=== PATIENT | male | born 1975 | race Caucasian/White ===

== ENCOUNTER 2024-03-13 12:09 | Inpatient (IN) | payer OTHER ==
[~2024-03-13] VITALS: Ht 177.8 cm; Wt 68.0 kg
--- NOTE | 2024-03-13 12:32 | ED.PDOC ---
Altered Mental Status HPI Comments 48 y.o male presents to the ED via EMS for an evaluation of altered mental status. EMS reports patient was picked up from a rehabilitation facility in [place], [place], staff noted a change of patient's mental status, last seen normal was around 1999 last night. Patient is in the facility for alcohol and cocaine detox with last alcohol drink being 11 days ago and unknown when cocaine was last used. Patient is lethargic with GCS of 10 per EMS, is able to verbally answer some questions in a mumbling format. Patient has a history of CHF. Time Seen by MD: 12:04 Reviewed Notes: Nurses Notes, Wood Shop Teacher Notes, Medications, Allergies Allergies: Coded Allergies: NO KNOWN ALLERGIES (Unverified , 03/13/24) Information Source: Emergency Med Personnel Mode of Arrival: EMS Severity: Moderate Timing: Hours Duration: Since onset Quality: Decreased Alertness, Change in Behavior Associated Signs and Symptoms: Other Past Medical History PAST MEDICAL HISTORY: CHF Past Medical History (Other): sepsis x 2 years Family History Family History: Reviewed,noncontributory to illness Social History Smoker: Non-Smoker Alcohol: Occasionally Drugs: Cocaine Lives In: Home Unable to Obtain due to: Altered Mental Status Physical Exam General Appearance: No Apparent Distress, Normal HEENT: Normal ENT Inspection, Pharynx Normal, TMs Normal Neck: Full Range of Motion, Non-Tender, Normal, Normal Inspection Respiratory: Chest Non-Tender, Lungs Clear, No Accessory Muscle Use, No Respiratory Distress, Normal Breath Sounds Cardiovascular: No Edema, No JVD, No Murmur, No Gallop, Normal Peripheral Pulses, Regular Rate/Rhythm Breast Exam: Deferred Gastrointestinal: No Organomegaly, Non Tender, No Pulsatile Mass, Normal Bowel Sounds, Soft Genitalia: Deferred Pelvic: Deferred Rectal: Deferred Extremities: No calf tenderness, Normal capillary refill, Normal inspection, Normal range of motion, Non-tender, No pedal edema Musculoskeletal : Apperance: Normal Neurologic: Other (4mm bilateral pupils, no facial asymmetry, responds verbally with soft and mumbling voice. no posturing) Cerebellar Function: Normal Reflexes: Normal Skin: Dry, Normal Color, Warm Lymphatic: No Adenopathy Was a procedure done? Was a procedure done?: No Differential Diagnosis (ALOC) Differential Diagnosis: Dehydration, Hypoglycemia, DKA, Encephalopathy, Meningitis, Sepsis, Hypoxemia, Seizure, Closed Head Injury, CVA, Mass Lesion, SAH, Drug Overdose, ETOH Intoxication, Other (drug overdose) X-Ray, Labs, Meds, VS Vital Signs Date Time Temp Pulse Resp B/P (MAP) Pulse Ox O2 Delivery O2 Flow Rate FiO2 03/13/24 13:04 88 6 100 Nasal Cannula* 3 32 03/13/24 13:04 97.8 88 6 122/82 (95) 100 97.8 03/13/24 12:15 96.9 100 12 106/75 (85) 94 03/13/24 12:10 95 Lab Test 03/13/24 15:10 03/13/24 13:00 Range/Units Urine Opiates Screen Neg NEGATIVE Urine Fentanyl Screen Pos NEGATIVE Urine Barbiturates Screen Pos NEGATIVE Urine Phencyclidine Screen Neg NEGATIVE Urine Amphetamines Screen Neg NEGATIVE Urine Benzodiazepines Screen Neg NEGATIVE Urine Cocaine Screen Pos NEGATIVE Urine Cannabinoids Screen Pos NEGATIVE White Blood Count 5.3 4.4-10.8 10^3/uL Red Blood Count 4.80 4.5-5.90 10^6/uL Hemoglobin 14.3 13.5-17.5 g/dL Hematocrit 42.3 41.0-53.0 % Mean Corpuscular Volume 88.1 80.0-100.0 fL Mean Corpuscular Hemoglobin 29.8 28.0-32.0 pg Mean Corpuscular Hemoglobin Concent 33.9 32.0-36.0 g/dL Red Cell Distribution Width 15.4 H 11.8-14.3 % Platelet Count 158 140-450 10^3/uL Mean Platelet Volume 8.6 6.9-10.8 fL Neutrophils (%) (Auto) 72.0 37.0-80.0 % Lymphocytes (%) (Auto) 20.9 10.0-50.0 % Monocytes (%) (Auto) 5.1 0.0-12.0 % Eosinophils (%) (Auto) 1.6 0.0-7.0 % Basophils (%) (Auto) 0.4 0.0-2.0 % Neutrophils # (Auto) 3.8 1.6-8.6 10 ^3/uL Lymphocytes # (Auto) 1.1 0.4-5.4 10 ^3/uL Monocytes # (Auto) 0.3 0-1.3 10 ^3/uL Eosinophils # (Auto) 0.1 0-0.8 10 ^3/uL Basophils # (Auto) 0 0-0.2 10 ^3/uL Nucleated Red Blood Cells 0.0 % Sodium Level 145 136-145 mmol/L Potassium Level 4.0 3.5-5.1 mmol/L Chloride Level 108 H 98-107 mmol/L Carbon Dioxide Level 30 20-31 mmol/L Anion Gap 7 5-15 Blood Urea Nitrogen 14 9-23 mg/dL Creatinine 1.33 H 0.700-1.30 mg/dL Glomerular Filtration Rate Calc 66 >90 mL/min BUN/Creatinine Ratio 10.5 10.0-20.0 Serum Glucose 101 74-106 mg/dL Calcium Level 10.1 8.7-10.4 mg/dL Plasma/Serum Blood Alcohol < 3.0 <10 mg/dL Current Medications Medications (Trade) Dose Ordered Sig/Miguel Route Start Time Stop Time Status Last Admin Naloxone HCl (Narcan) 0.4 mg ONCE ONCE IV 03/13/24 12:45 03/13/24 12:46 DC 03/13/24 13:03 Time of 1ST Reevaluation: 12:12 Reevaluation 1ST: Unchanged (nsr on cardiac rhythm) Time of 2ND Reevaluation: 14:21 Reevaluation 2ND: Unchanged (rhythm monitor- nsr. pt is sleeping, but can be waken to gaze and whisper softly) Time of 3RD Reevaluation: 16:25 Reevaluation 3RD: Unchanged (cardiac rhythm- nsr- no changes in mentaion) Patient Education/Counseling: Other (patient is altered ) Family Education/Counseling: Diagnosis, Treatment, Prognosis, Need For Follow Up, No Family Present Additional Information Ordered Test- Drug screen, CBC, BMP, EKG , head ct, drug screen Reviewed Results- LAB Independent Hx- Paramedics and Interpreted Results- CT Head- reviewed and agree with radiology- IMPRESSION: 1. No acute intracranial hemorrhage. 2. No CT findings of territorial ischemia. Discuss Tx/Results- , medical personnel, technical assistance consultant reports both are in the Detox program at the [facility], are on Suboxone. and patient both used cocaine and alcohol 7 days ago. reports patient AMS has been going on for the past 2 days. pt tested positive for pat, and fent. he remains lethargic, but no airway compromise. he can be waken, to start and whisper softly. he is not stable to be discharged, but does not need airway interventions. however, he will need admission for further monitoring Departure 1 Departure Time of Disposition: 16:28 Impression: Primary Impression: Drug overdose Qualified Codes: T50.904A - Poisoning by unspecified drugs, medicaments and biological substances, undetermined, initial encounter Disposition: ADMITTED INPATIENT Admit to: Tele Condition: Serious Critical Care Note Critical Care Time?: Yes (1 hr-critical care time only) Critical care comment: due to concerns for sudden deterioration of pt's condition, the patient's care required my most attentive level and highest readiness to intervene. i assessed him, ordered the appropriate orders, reviewed the results, and reassessed the patient's response, formulated a care plan, communicated with medical personnel and consultants. total time include at least 50% face-face interaction and does not include any procedures Stability Stability form required: No I personally scribed for VINNY CAMPBELL MD ([facility]) on 03/13/24 at 12:32. Electronically submitted by Alma Brush ([facility]). I personally scribed for VINNY CAMPBELL MD ([facility]) on 03/13/24 at 12:49. Electronically submitted by Alma Brush ([employer]). I personally scribed for VINNY CAMPBELL MD ([facility]) on 03/13/24 at 13:15. Electronically submitted by Alma Brush ([employer]). I personally scribed for VINNY CAMPBELL MD ([email or web address]) on 03/13/24 at 16:13. Electronically submitted by Alma Brush ([facility]). VINNY CAMPBELL MD Mar 13, 2024 12:32
[2024-03-13] MEDS: NALOXONE HCL 0.4 MG/ML VIAL IV ONE (13:03)
[2024-03-13 13:04] VITALS: PULSE 88; RESP 6; O2SAT 100
[2024-03-13 13:14] LABS: Basophils # (auto) 0 10 ^3/uL (0-0.2); Basophils % (auto) 0.4 % (0.0-2.0); Eosinophils # (auto) 0.1 10 ^3/uL (0-0.8); Eosinophils % (auto) 1.6 % (0.0-7.0); Hematocrit 42.3 % (41.0-53.0); Hemoglobin 14.3 g/dL (13.5-17.5); Lymphocytes # (auto) 1.1 10 ^3/uL (0.4-5.4); Lymphocytes % (auto) 20.9 % (10.0-50.0); Mean Corpuscular Hemoglobin 29.8 pg (28.0-32.0); Mean Corpuscular Hgb Conc. 33.9 g/dL (32.0-36.0); Mean Corpuscular Volume 88.1 fL (80.0-100.0); Monocytes # (auto) 0.3 10 ^3/uL (0-1.3); Monocytes % (auto) 5.1 % (0.0-12.0); Neutrophils # (auto) 3.8 10 ^3/uL (1.6-8.6); Platelet Count (auto) 158 10^3/uL (140-450); Red Cell Distribution Width 15.4 % (11.8-14.3); White Blood Cell 5.3 10^3/uL (4.4-10.8)
[2024-03-13 13:27] LABS: Anion Gap 7 (5-15); Calcium 10.1 mg/dL (8.7-10.4); Carbon Dioxide 30 mmol/L (20-31)
[2024-03-13 13:29] LABS: Chloride 108 mmol/L (98-107); Sodium 145 mmol/L (136-145)
[2024-03-13 13:32] LABS: BUN/Creatinine Ratio 10.5 (10.0-20.0); Blood Urea Nitrogen 14 mg/dL (9-23); Glucose 101 mg/dL (74-106)
--- NOTE | 2024-03-13 14:51 | DVH ---
EXAM: CT HEAD WITHOUT CONTRAST INDICATION: altered TECHNIQUE: CT of the head without intravenous contrast. Radiation Dose Information: CT Dose: CTDI volume is 57.04 mGy. Dose-length product is 1010.0 mGy*cm The dose indicators for CT are the volume Computed Tomography (CT) Dose Index (CTDIvol) and the Dose Length Product (DLP), and are measured in units of mGy and mGy-cm, respectively. These indicators are not patient dose, but values generated from the CT scanner acquisition factors. The report includes radiation exposure data for exposures received during this examination. COMPARISON: None FINDINGS: There is no evidence of acute intracranial hemorrhage, extra-axial collection, mass effect, midline s hift, herniation or hydrocephalus. The ventricles, sulci and cisterns are age appropriate. The little-white differentiation is intact. Patchy periventricular and subcortical white matter hypoattenuation is nonspecific but may be related to small vessel ischemic disease. The visualized paranasal sinuses and mastoid air cells are clear. The surrounding soft tissues and osseous structures are unremarkable. IMPRESSION: 1. No acute intracranial hemorrhage. 2. No CT findings of territorial ischemia.
[2024-03-13 15:36] LABS: Barbiturate Scree,Urine Pos (NEGATIVE); Benzodiazephine Screen, Urine Neg (NEGATIVE); Cocaine Screen, Urine Pos (NEGATIVE)
[2024-03-13 15:47] LABS: Amphetamine Screen, Urine Neg (NEGATIVE); Cannabinoid Screen, Urine Pos (NEGATIVE); Opiate Scree,Urine Neg (NEGATIVE); Phencyclidine Screen, Urine Neg (NEGATIVE)
[2024-03-13] MEDS: SODIUM CHLORIDE 0.9% 1,000 ML IV ONE (15:50)
--- NOTE | 2024-03-13 17:01 | ECG ---
[facility] Test Date: 2024-03-13 Test Time: 12:10:44 Pat Name: RADHA JACKSON Department: ED Room: Gender: M Sample Builder: LAURA : 1975 Requested By: VINNY CAMPBELL Order Number: [id number] Reading MD: Measurements Intervals [place] Rate: 95 P: 63 NV: 159 QRS: 20 QRSD: 112 T: 36 QT: 359 QTc: 452 Interpretive Statements Sinus rhythm Incomplete right bundle branch block Please click the below link to view image of tracing.
[2024-03-13] MEDS ORDERED: MAALOX PLUS or MAALOX 30 ML PO PRN (18:30)
[2024-03-13] MEDS ORDERED: ACETAMINOPHEN 325 MG TAB PO PRN (18:30)
[2024-03-13] MEDS ORDERED: DOCUSATE SOD 100 MG CAP PO PRN (18:30)
[2024-03-13] MEDS ORDERED: HYDROcodone-ACET 5/325MG TAB PO PRN (18:30)
--- NOTE | 2024-03-13 18:40 | DVHHP2 ---
History of Present Illness Reason for Visit: overdose History of Present Illness 48-year-old with a past medical history of drug abuse and CHF patient was picked up from rehabilitation facility patient is therefore drug and alcohol detox stated that have been at the rehab for a few days currently patient comes in lethargic and signs of acute overdose Drugs: Cocaine, Marijuana, Heroin Review of Systems Constitutional: Yes: Weakness; No: Fever, Chills, Sweats, Malaise, Other Eyes: No: Pain, Vision change, Conjunctivae inflammation, Eyelid inflammation, Other, Redness ENT: No: Ear pain, Ear discharge, Nose pain, Nose discharge, Nose congestion, Mouth pain, Mouth swelling, Throat pain, Throat swelling, Other Respiratory: No: Cough, Dry, Shortness of breath, SOB with excertion, Wheezing, Hemoptysis, Pleuritic Pain, Sputum, Wheezing, Other Cardiovascular: No: Chest Pain, Palpitations, Orthopnea, Paroxysmal Noc. Dyspnea, Edema, Lt Headedness, Other Gastrointestinal: No: Nausea, Vomiting, Abdominal Pain, Diarrhea, Constipation, Melena, Hematochezia, Other Genitourinary: No Dysuria, No Frequency, No Incontinence, No Hematuria, No Rete ntion, No Other Musculoskeletal: No: other, neck pain, shoulder pain, arm pain, back pain, hand pain, leg pain, foot pain Skin: No: Rash, Lesions, Jaundice, Bruising, Other Neurological: Weakness, Incoordination, Change in speech, Confusion, Seizures Allergies: Coded Allergies: NO KNOWN ALLERGIES (Unverified , 03/13/24) Exam Vital Signs Vital Signs Date Time Temp Pulse Resp B/P (MAP) Pulse Ox O2 Delivery O2 Flow Rate FiO2 03/13/24 17:00 72 8 129/82 (98) 100 03/13/24 13:04 Nasal Cannula* 3 32 03/13/24 13:04 97.8 97.8 General Appearance: moderate distress HEENT: Atraumatic, PERRLA Respiratory: Clear to auscultation, Normal air movement Cardiovascular: Regular rate, Normal S1, Normal S2 Abdominal: Normal bowel sounds, Soft, No tenderness Extremities: No clubbing, No cyanosis, No edema Skin: No rashes, No breakdown, No significant lesion Neuro: Normal gait, Normal speech Psych/Mental Status: Mental status NL (Patient with acute intoxication), Mood NL Labs/Xrays Labs Test 03/13/24 15:10 03/13/24 13:00 Range/Units Urine Opiates Screen Neg NEGATIVE Urine Fentanyl Screen Pos NEGATIVE Urine Barbiturates Screen Pos NEGATIVE Urine Phencyclidine Screen Neg NEGATIVE Urine Amphetamines Screen Neg NEGATIVE Urine Benzodiazepines Screen Neg NEGATIVE Urine Cocaine Screen Pos NEGATIVE Urine Cannabinoids Screen Pos NEGATIVE White Blood Count 5.3 4.4-10.8 10^3/uL Red Blood Count 4.80 4.5-5.90 10^6/uL Hemoglobin 14.3 13.5-17.5 g/dL Hematocrit 42.3 41.0-53.0 % Mean Corpuscular Volume 88.1 80.0-100.0 fL Mean Corpuscular Hemoglobin 29.8 28.0-32.0 pg Mean Corpuscular Hemoglobin Concent 33.9 32.0-36.0 g/dL Red Cell Distribution Width 15.4 H 11.8-14.3 % Platelet Count 158 140-450 10^3/uL Mean Platelet Volume 8.6 6.9-10.8 fL Neutrophils (%) (Auto) 72.0 37.0-80.0 % Lymphocytes (%) (Auto) 20.9 10.0-50.0 % Monocytes (%) (Auto) 5.1 0.0-12.0 % Eosinophils (%) (Auto) 1.6 0.0-7.0 % Basophils (%) (Auto) 0.4 0.0-2.0 % Neutrophils # (Auto) 3.8 1.6-8.6 10 ^3/uL Lymphocytes # (Auto) 1.1 0.4-5.4 10 ^3/uL Monocytes # (Auto) 0.3 0-1.3 10 ^3/uL Eosinophils # (Auto) 0.1 0-0.8 10 ^3/uL Basophils # (Auto) 0 0-0.2 10 ^3/uL Nucleated Red Blood Cells 0.0 % Sodium Level 145 136-145 mmol/L Potassium Level 4.0 3.5-5.1 mmol/L Chloride Level 108 H 98-107 mmol/L Carbon Dioxide Level 30 20-31 mmol/L Anion Gap 7 5-15 Blood Urea Nitrogen 14 9-23 mg/dL Creatinine 1.33 H 0.700-1.30 mg/dL Glomerular Filtration Rate Calc 66 >90 mL/min BUN/Creatinine Ratio 10.5 10.0-20.0 Serum Glucose 101 74-106 mg/dL Calcium Level 10.1 8.7-10.4 mg/dL Plasma/Serum Blood Alcohol < 3.0 <10 mg/dL Assessment/Plan Assessment/Plan Admit to [facility] Patient is positive for multiple signs of drug abuse Patient is positive for fentanyl Barbiturates And methamphetamines Cocaine and cannabis IV hydration p.r.n. Narcan Plan discussed with: Patient My Orders Orders - RAHUL VILLALPANDO MD Procedure Category Date Status Time Admit ADMIT 03/13/24 Verified 18:26 Code Status CODE 03/13/24 Verified 18:26 Vital Signs [facility] 03/13/24 Verified 18:26 Review Orders With [facility] 03/13/24 Verified Adm. 18:26 Regular Diet DIET 03/13/24 Verified Dinner Sodium Chloride 0.9% [facility] 03/13/24 Verified 18:30 Lorazepam Tablet [facility] 03/13/24 Verified (Ativan Tablet) 18:30 Alum & Mag [facility] 03/13/24 Verified Hydrox-Simethicone 18:30 Docusate Sodium [facility] 03/13/24 Verified Capsule (Colace 18:30 Acetaminophen Tablet [facility] 03/13/24 Verified (Tylenol Tablet) 18:30 Temazepam (Restoril) [facility] 03/13/24 Verified 18:30 Notify Md Of Changes [facility] 03/13/24 Verified From Base 18:26 Advance Directive [facility] 03/13/24 Verified 18:26 Basic Metabolic Panel LAB 03/14/24 Verified 04:00 Complete Blood Count LAB 03/14/24 Verified 04:00 Patient Condition ORDERS 03/13/24 Verified 18:26 Allergies [facility] 03/13/24 Verified 18:26 Hydrocodone-Acet PHA 03/13/24 Verified 5/325mg Tab ([place] 18:30 Problem List: (1) Drug overdose Date of Service: Mar 13, 2024 Billing Provider: RAHUL VILLALPANDO MD Common Visit Codes: [id number] INP/OBS CARE (HIGH) RAHUL VILLALPANDO MD Mar 13, 2024 18:40
[2024-03-13] MEDS ORDERED: NALOXONE HCL 0.4 MG/ML VIAL IV PRN (19:00)
[2024-03-13] MEDS: SODIUM CHLORIDE 0.9% 1,000 ML IV SCH (19:03)
[2024-03-13 19:51] VITALS: O2SAT 100
[2024-03-13] MEDS: MORPHINE SULFATE INJ 2 MG/ml SYRG IV PRN (20:22)
[2024-03-13] MEDS: ONDANSETRON HCL 4 MG/2 ML VIAL IV PRN (20:23)
[2024-03-13] MEDS: hydrOXYzine HCL 10 MG TAB PO PRN (21:00)
[2024-03-13] MEDS: LORazepam 0.5 MG TAB PO PRN (21:00)
[2024-03-13] MEDS ORDERED: diphenhdrAMINE HCL 50 MG/1 ML VL IV ONE (23:15)
[2024-03-13] MEDS: TEMAZEPAM 15 MG CAP PO PRN (23:32)
[2024-03-13] MEDS: diphenhdrAMINE HCL 50 MG/1 ML VL IV PRN (23:32)
[2024-03-14] VITALS (9 sets, daily range): BP systolic 118–172; BP diastolic 73–95; PULSE 76–117; RESP 17–20; TEMP 96.9–98.7; O2SAT 93–100
[2024-03-14 05:44] LABS: Basophils # (auto) 0 10 ^3/uL (0-0.2); Basophils % (auto) 0.4 % (0.0-2.0); Eosinophils # (auto) 0 10 ^3/uL (0-0.8); Eosinophils % (auto) 0.3 % (0.0-7.0); Hematocrit 42.8 % (41.0-53.0); Hemoglobin 14.3 g/dL (13.5-17.5); Lymphocytes # (auto) 1.6 10 ^3/uL (0.4-5.4); Mean Corpuscular Hemoglobin 29.5 pg (28.0-32.0); Mean Corpuscular Hgb Conc. 33.3 g/dL (32.0-36.0); Mean Corpuscular Volume 88.4 fL (80.0-100.0); Monocytes # (auto) 0.6 10 ^3/uL (0-1.3); Monocytes % (auto) 7.2 % (0.0-12.0); Neutrophils # (auto) 5.5 10 ^3/uL (1.6-8.6); Neutrophils % (auto) 71.1 % (37.0-80.0); Nucleated Red Blood Cells % 0.2 %; Platelet Count (auto) 167 10^3/uL (140-450); Red Blood Cells 4.84 10^6/uL (4.5-5.90); White Blood Cell 7.7 10^3/uL (4.4-10.8)
[2024-03-14 05:59] LABS: Anion Gap 10 (5-15); Carbon Dioxide 27 mmol/L (20-31); Potassium 4.3 mmol/L (3.5-5.1); Sodium 145 mmol/L (136-145)
[2024-03-14 06:05] LABS: BUN/Creatinine Ratio 10.9 (10.0-20.0); Blood Urea Nitrogen 12 mg/dL (9-23); Glucose 84 mg/dL (74-106)
[2024-03-14 06:14] LABS: Chloride 108 mmol/L (98-107)
--- NOTE | 2024-03-14 11:35 | DVHPN2 ---
Eyes: No Pain, No Vision change, No Conjunctivae inflammation, No Eyelid inflammation, No Other, No Redness ENT: No Ear pain, No Ear discharge, No Nose pain, No Nose discharge, No Nose congestion, No Mouth pain, No Mouth swelling, No Throat pain, No Throat swelling, No Other Cardiovascular: No Chest Pain, No Palpitations, No Orthopnea, No Paroxysmal Noc. Dyspnea, No Edema, No Lt Headedness, No Other Respiratory: No Cough, No Dry, No Shortness of breath, No SOB with excertion, No Wheezing, No Hemoptysis, No Pleuritic Pain, No Sputum, No Other Gastrointestinal: No Nausea, No Vomiting, No Abdominal Pain, No Diarrhea, No Constipation, No Melena, No Hematochezia, No Other Genitourinary: No Dysuria, No Frequency, No Incontinence, No Hematuria, No Retention, No Other Musculoskeletal: No other, No neck pain, No shoulder pain, No arm pain, No back pain, No hand pain, No leg pain, No foot pain Skin: No Rash, No Lesions, No Jaundice, No Bruising, No Other Objective Vitals Vital Signs Date Time Temp Pulse Resp B/P (MAP) Pulse Ox O2 Delivery O2 Flow Rate FiO2 03/14/24 05:00 97.0 117 20 172/95 (120) 98 97.0 03/14/24 03:49 Nasal Cannula* 2 28 Intake/Output Intake and Output 03/14/24 07:00 Intake Total 0 ml Output Total 950 ml Balance -950 ml Intake Oral 0 ml Output Urine Total 950 ml Medications Current Medications Medications Dose Ordered Sig/Miguel Route Start Time Stop Time Status Last Admin Dose Admin Sodium Chloride 1,000 ml @ 100 mls/hr Q10H IV 03/13/24 18:30 03/13/24 19:03 100 MLS/HR Lorazepam 0.5 mg Q6HP PRN PO 03/13/24 18:30 03/13/24 21:00 0.5 MG Al Hydrox/Mg Hydrox/Simethicone 30 ml Q6HP PRN PO 03/13/24 18:30 Docusate Sodium 100 mg BIDPRN PRN PO 03/13/24 18:30 Acetaminophen 650 mg Q6HP PRN PO 03/13/24 18:30 Temazepam 15 mg QHSP PRN PO 03/13/24 18:30 03/13/24 23:32 15 MG Acetaminophen/ Hydrocodone Bitart 1 tab Q4HP PRN PO 03/13/24 18:30 Ondansetron HCl 4 mg Q4HP PRN IV 03/13/24 18:30 03/13/24 20:23 4 MG Morphine Sulfate 2 mg Q4HPRN PRN IV 03/13/24 18:30 03/13/24 20:22 2 MG Hydroxyzine HCl 20 mg QHSP PRN PO 03/13/24 18:30 03/13/24 21:00 20 MG Naloxone HCl 0.2 mg QID PRN IV 03/13/24 19:00 Diphenhydramine HCl 25 mg Q4HP PRN IV 03/13/24 23:15 03/14/24 05:44 25 MG Laboratory Results Laboratory Tests 03/14/24 04:42 Chemistry Test 03/13/24 13:00 03/14/24 04:42 Calcium Level 10.1 mg/dL (8.7-10.4) 10.0 mg/dL (8.7-10.4) Microbiology Microbiology Date/Time Source Procedure Growth Status 03/13/24 15:10 Urine - [facility] [place] Urine Culture - Preliminary Resulted TERA GREEN MD Mar 14, 2024 11:35
[2024-03-14] MEDS ORDERED: HYDR50TA69 PO (16:08)
[2024-03-14] MEDS ORDERED: TRAZ-227 PO (16:08)
[2024-03-14] MEDS ORDERED: BUPR1MIS SL (16:08)
[2024-03-14] MEDS: HALOPERIDOL LACTATE 5 MG/ML INJ VIAL IM PRN (17:36)
[2024-03-14] MEDS: QUEtiapine FUMARATE 25 MG TAB PO SCH (22:00)
[2024-03-15] VITALS (8 sets, daily range): BP systolic 150–170; BP diastolic 82–102; PULSE 74–95; RESP 16–18; TEMP 97.8–98.8; O2SAT 96–99
--- NOTE | 2024-03-15 13:33 | DVHPN2 ---
Eyes: No Pain, No Vision change, No Conjunctivae inflammation, No Eyelid inflammation, No Other, No Redness ENT: No Ear pain, No Ear discharge, No Nose pain, No Nose discharge, No Nose congestion, No Mouth pain, No Mouth swelling, No Throat pain, No Throat swelling, No Other Cardiovascular: No Chest Pain, No Palpitations, No Orthopnea, No Paroxysmal Noc. Dyspnea, No Edema, No Lt Headedness, No Other Respiratory: No Cough, No Dry, No Shortness of breath, No SOB with excertion, No Wheezing, No Hemoptysis, No Pleuritic Pain, No Sputum, No Other Gastrointestinal: No Nausea, No Vomiting, No Abdominal Pain, No Diarrhea, No Constipation, No Melena, No Hematochezia, No Other Genitourinary: No Dysuria, No Frequency, No Incontinence, No Hematuria, No Retention, No Other Musculoskeletal: No other, No neck pain, No shoulder pain, No arm pain, No back pain, No hand pain, No leg pain, No foot pain Skin: No Rash, No Lesions, No Jaundice, No Bruising, No Other Objective Vitals Vital Signs Date Time Temp Pulse Resp B/P (MAP) Pulse Ox O2 Delivery O2 Flow Rate FiO2 03/15/24 13:24 98.5 95 18 161/93 (115) 96 98.5 03/14/24 20:00 Room Air* 0 21 Intake/Output Intake and Output 03/15/24 07:00 Intake Total 1310 ml Output Total 800 ml Balance 510 ml Intake Oral 810 ml IV Total 500 ml Output Urine Total 800 ml Medications Current Medications Medications Dose Ordered Sig/Miguel Route Start Time Stop Time Status Last Admin Dose Admin Sodium Chloride 1,000 ml @ 100 mls/hr Q10H IV 03/13/24 18:30 03/15/24 02:33 100 MLS/HR Lorazepam 0.5 mg Q6HP PRN PO 03/13/24 18:30 03/15/24 09:33 0.5 MG Al Hydrox/Mg Hydrox/Simethicone 30 ml Q6HP PRN PO 03/13/24 18:30 Docusate Sodium 100 mg BIDPRN PRN PO 03/13/24 18:30 Acetaminophen 650 mg Q6HP PRN PO 03/13/24 18:30 Temazepam 15 mg QHSP PRN PO 03/13/24 18:30 03/13/24 23:32 15 MG Acetaminophen/ Hydrocodone Bitart 1 tab Q4HP PRN PO 03/13/24 18:30 Ondansetron HCl 4 mg Q4HP PRN IV 03/13/24 18:30 03/13/24 20:23 4 MG Morphine Sulfate 2 mg Q4HPRN PRN IV 03/13/24 18:30 03/13/24 20:22 2 MG Hydroxyzine HCl 20 mg QHSP PRN PO 03/13/24 18:30 03/13/24 21:00 20 MG Naloxone HCl 0.2 mg QID PRN IV 03/13/24 19:00 Diphenhydramine HCl 25 mg Q4HP PRN IV 03/13/24 23:15 03/15/24 02:31 25 MG Quetiapine Fumarate 25 mg HS PO 03/14/24 22:00 03/14/24 22:00 25 MG Haloperidol Lactate 5 mg Q6HP PRN IM 03/14/24 17:15 03/14/24 17:36 5 MG Laboratory Results Laboratory Tests 03/14/24 04:42 Microbiology Microbiology Date/Time Source Procedure Growth Status 03/13/24 15:10 Urine - [place] [place] Urine Culture - Final Complete Assessment/Plan My Orders Orders - TERA GREEN MD Procedure Category Date Status Time Quetiapine Fumarate PHA 03/14/24 In Process Tablet (Seroquel Tab 22:00 Haloperidol Lactate PHA 03/14/24 In Process Injection (Haldol) 17:15 TERA GREEN MD Mar 15, 2024 13:32
[2024-03-15] MEDS: cloNIDine HCL 0.1 MG TAB PO ONE (18:08)
[2024-03-15] MEDS: cloNIDine HCL 0.1 MG TAB PO SCH (21:42)
[2024-03-16 01:00] VITALS: BP 144/94; PULSE 85; RESP 18; TEMP 98.6; O2SAT 98
[2024-03-16 05:00] VITALS: BP 140/84; PULSE 78; RESP 18; TEMP 98.4; O2SAT 99
--- NOTE | 2024-03-16 08:13 | DVHPN2 ---
Eyes: No Pain, No Vision change, No Conjunctivae inflammation, No Eyelid inflammation, No Other, No Redness ENT: No Ear pain, No Ear discharge, No Nose pain, No Nose discharge, No Nose congestion, No Mouth pain, No Mouth swelling, No Throat pain, No Throat swelling, No Other Cardiovascular: No Chest Pain, No Palpitations, No Orthopnea, No Paroxysmal Noc. Dyspnea, No Edema, No Lt Headedness, No Other Respiratory: No Cough, No Dry, No Shortness of breath, No SOB with excertion, No Wheezing, No Hemoptysis, No Pleuritic Pain, No Sputum, No Other Gastrointestinal: No Nausea, No Vomiting, No Abdominal Pain, No Diarrhea, No Constipation, No Melena, No Hematochezia, No Other Genitourinary: No Dysuria, No Frequency, No Incontinence, No Hematuria, No Retention, No Other Musculoskeletal: No other, No neck pain, No shoulder pain, No arm pain, No back pain, No hand pain, No leg pain, No foot pain Skin: No Rash, No Lesions, No Jaundice, No Bruising, No Other Objective Vitals Vital Signs Date Time Temp Pulse Resp B/P (MAP) Pulse Ox O2 Delivery O2 Flow Rate FiO2 03/16/24 05:00 98.4 78 18 140/84 (102) 99 98.4 03/15/24 20:00 Room Air* 0 21 Intake/Output Intake and Output 03/16/24 07:00 Intake Total 400 ml Output Total 500 ml Balance -100 ml Intake Oral 400 ml Output Urine Total 500 ml # Voids 2 # Bowel Movements 2 Medications Current Medications Medications Dose Ordered Sig/Miguel Route Start Time Stop Time Status Last Admin Dose Admin Sodium Chloride 1,000 ml @ 100 mls/hr Q10H IV 03/13/24 18:30 03/15/24 02:33 100 MLS/HR Lorazepam 0.5 mg Q6HP PRN PO 03/13/24 18:30 03/15/24 18:12 0.5 MG Al Hydrox/Mg Hydrox/Simethicone 30 ml Q6HP PRN PO 03/13/24 18:30 Docusate Sodium 100 mg BIDPRN PRN PO 03/13/24 18:30 Acetaminophen 650 mg Q6HP PRN PO 03/13/24 18:30 Temazepam 15 mg QHSP PRN PO 03/13/24 18:30 03/13/24 23:32 15 MG Acetaminophen/ Hydrocodone Bitart 1 tab Q4HP PRN PO 03/13/24 18:30 Ondansetron HCl 4 mg Q4HP PRN IV 03/13/24 18:30 03/13/24 20:23 4 MG Morphine Sulfate 2 mg Q4HPRN PRN IV 03/13/24 18:30 03/13/24 20:22 2 MG Hydroxyzine HCl 20 mg QHSP PRN PO 03/13/24 18:30 03/13/24 21:00 20 MG Naloxone HCl 0.2 mg QID PRN IV 03/13/24 19:00 Diphenhydramine HCl 25 mg Q4HP PRN IV 03/13/24 23:15 03/15/24 02:31 25 MG Quetiapine Fumarate 25 mg HS PO 03/14/24 22:00 03/15/24 21:42 25 MG Haloperidol Lactate 5 mg Q6HP PRN IM 03/14/24 17:15 03/15/24 16:10 5 MG Clonidine HCl 0.1 mg BID PO 03/15/24 22:00 03/15/24 21:42 0.1 MG Laboratory Results Laboratory Tests 03/14/24 04:42 Microbiology Microbiology Date/Time Source Procedure Growth Status 03/15/24 02:01 Nose MRSA Screen - Final Complete 03/13/24 15:10 Urine - [place] [place] Urine Culture - Final Complete Assessment/Plan My Orders Orders - TERA GREEN MD Procedure Category Date Status Time Soc Telemed Psych CONS 03/15/24 Transmitted Consult 17:22 Clonidine Hcl Tablet PHA 03/15/24 In Process (Catapres Tablet) 22:00 TERA GREEN MD Mar 16, 2024 08:13
[2024-03-16 09:00] VITALS: BP 149/99; PULSE 89; RESP 20; TEMP 98.1; O2SAT 95
--- NOTE | 2024-03-16 11:01 | DVHDS2 ---
Discharge Summary Date of Admission Mar 13, 2024 at 18:37 Date of Discharge: Mar 16, 2024 Labs/Diagnostic Data: Laboratory Results Test 03/14/24 04:42 03/13/24 15:10 03/13/24 13:00 White Blood Count 7.7 10^3/uL (4.4-10.8) Red Blood Count 4.84 10^6/uL (4.5-5.90) Hemoglobin 14.3 g/dL (13.5-17.5) Hematocrit 42.8 % (41.0-53.0) Mean Corpuscular Volume 88.4 fL (80.0-100.0) Mean Corpuscular Hemoglobin 29.5 pg (28.0-32.0) Mean Corpuscular Hemoglobin Concent 33.3 g/dL (32.0-36.0) Red Cell Distribution Width 15.0 % (11.8-14.3) Platelet Count 167 10^3/uL (140-450) Mean Platelet Volume 8.8 fL (6.9-10.8) Neutrophils (%) (Auto) 71.1 % (37.0-80.0) Lymphocytes (%) (Auto) 21.0 % (10.0-50.0) Monocytes (%) (Auto) 7.2 % (0.0-12.0) Eosinophils (%) (Auto) 0.3 % (0.0-7.0) Basophils (%) (Auto) 0.4 % (0.0-2.0) Neutrophils # (Auto) 5.5 10 ^3/uL (1.6-8.6) Lymphocytes # (Auto) 1.6 10 ^3/uL (0.4-5.4) Monocytes # (Auto) 0.6 10 ^3/uL (0-1.3) Eosinophils # (Auto) 0 10 ^3/uL (0-0.8) Basophils # (Auto) 0 10 ^3/uL (0-0.2) Nucleated Red Blood Cells 0.2 % Sodium Level 145 mmol/L (136-145) Potassium Level 4.3 mmol/L (3.5-5.1) Chloride Level 108 mmol/L (98-107) Carbon Dioxide Level 27 mmol/L (20-31) Anion Gap 10 (5-15) Blood Urea Nitrogen 12 mg/dL (9-23) Creatinine 1.10 mg/dL (0.700-1.30) Glomerular Filtration Rate Calc 82 mL/min (>90) BUN/Creatinine Ratio 10.9 (10.0-20.0) Serum Glucose 84 mg/dL (74-106) Calcium Level 10.0 mg/dL (8.7-10.4) Urine Opiates Screen Neg (NEGATIVE) Urine Fentanyl Screen Pos (NEGATIVE) Urine Barbiturates Screen Pos (NEGATIVE) Urine Phencyclidine Screen Neg (NEGATIVE) Urine Amphetamines Screen Neg (NEGATIVE) Urine Benzodiazepines Screen Neg (NEGATIVE) Urine Cocaine Screen Pos (NEGATIVE) Urine Cannabinoids Screen Pos (NEGATIVE) Plasma/Serum Blood Alcohol < 3.0 mg/dL (<10) Other Laboratory Tests 03/14/24 04:42 Final Diagnosis/Problems List polysubtance abuse metabolic encephalopathy Discharge Disposition: Home Discharge Instruct/Medications Diet: Regular Activity: No Restrictions, As Tolerated Follow Up/Referral: pcp 1-2 weeks psychiatrist per schedule Discharge Statement: "Patient was advised to return to the ER or call 911 if any headaches, dizziness, shortness of breath, chest pain, abdominal pain, bleeding, fevers, or worsening of medical condition. Patient was counseled about treatment plan, medications, possible side effects, patientverbalized understanding. All questions were answered to the best of my ability. This discharge took greater then 30 minutes in planning, reviewing documentation, counseling the patient, and discussing with other team members." ASSESSMENT ASSESSMENT Assessment polysubtance abuse metabolic encephalopathy TERA GREEN MD Mar 16, 2024 11:01
[2024-03-16 12:53] VITALS: BP 140/84; PULSE 78; RESP 18; TEMP 98.4; O2SAT 99
[2024-03-16 13:00] VITALS: BP 151/101; PULSE 91; RESP 20; TEMP 98.2; O2SAT 95
--- NOTE | 2024-03-16 15:27 | DVHINCON2 ---
Date of Service if different f: Mar 16, 2024 Consultation (SHER) Progress: Better Labs Laboratory Tests Test 03/13/24 13:00 03/13/24 15:10 03/14/24 04:42 Plasma/Serum Blood Alcohol < 3.0 mg/dL (<10) Urine Opiates Screen Neg (NEGATIVE) Urine Fentanyl Screen Pos (NEGATIVE) Urine Barbiturates Screen Pos (NEGATIVE) Urine Phencyclidine Screen Neg (NEGATIVE) Urine Amphetamines Screen Neg (NEGATIVE) Urine Benzodiazepines Screen Neg (NEGATIVE) Urine Cocaine Screen Pos (NEGATIVE) Urine Cannabinoids Screen Pos (NEGATIVE) White Blood Count 7.7 10^3/uL (4.4-10.8) Red Blood Count 4.84 10^6/uL (4.5-5.90) Hemoglobin 14.3 g/dL (13.5-17.5) Hematocrit 42.8 % (41.0-53.0) Mean Corpuscular Volume 88.4 fL (80.0-100.0) Mean Corpuscular Hemoglobin 29.5 pg (28.0-32.0) Mean Corpuscular Hemoglobin Concent 33.3 g/dL (32.0-36.0) Red Cell Distribution Width 15.0 % (11.8-14.3) Platelet Count 167 10^3/uL (140-450) Mean Platelet Volume 8.8 fL (6.9-10.8) Neutrophils (%) (Auto) 71.1 % (37.0-80.0) Lymphocytes (%) (Auto) 21.0 % (10.0-50.0) Monocytes (%) (Auto) 7.2 % (0.0-12.0) Eosinophils (%) (Auto) 0.3 % (0.0-7.0) Basophils (%) (Auto) 0.4 % (0.0-2.0) Neutrophils # (Auto) 5.5 10 ^3/uL (1.6-8.6) Lymphocytes # (Auto) 1.6 10 ^3/uL (0.4-5.4) Monocytes # (Auto) 0.6 10 ^3/uL (0-1.3) Eosinophils # (Auto) 0 10 ^3/uL (0-0.8) Basophils # (Auto) 0 10 ^3/uL (0-0.2) Nucleated Red Blood Cells 0.2 % Sodium Level 145 mmol/L (136-145) Potassium Level 4.3 mmol/L (3.5-5.1) Chloride Level 108 mmol/L (98-107) Carbon Dioxide Level 27 mmol/L (20-31) Anion Gap 10 (5-15) Blood Urea Nitrogen 12 mg/dL (9-23) Creatinine 1.10 mg/dL (0.700-1.30) Glomerular Filtration Rate Calc 82 mL/min (>90) BUN/Creatinine Ratio 10.9 (10.0-20.0) Serum Glucose 84 mg/dL (74-106) Calcium Level 10.0 mg/dL (8.7-10.4) Microbiology Date/Time Source Procedure Growth Status 03/15/24 02:01 Nose MRSA Screen - Final Complete 03/13/24 15:10 Urine - [place] Urine Culture - Final Complete Appetite: Good Side effects of medications: No Appearance: Stated age Psychomotor activity: WNL Behavioral: Hostile Eye contact: Appropriate Speech: WNL Affect: Appropriate Mood: Euthymic Thought processes: Linear/Goal-directed Thought content: WNL Suicidal ideations: Absent Homicidal ideations: Absent Memory intact: Recent Intellect: Above average Abstractability: WNL Concentration: Adequate Attention: Adequate Judgement: WNL Insight: Good Vitals Vital Signs Date Time Temp Pulse Resp B/P (MAP) Pulse Ox O2 Delivery O2 Flow Rate FiO2 03/16/24 13:00 98.2 91 20 151/101 (118) 95 98.2 03/16/24 08:10 Room Air* 0 21 Current medications Current Medications Medications Dose Ordered Sig/Miguel Route Start Time Stop Time Status Last Admin Dose Admin Sodium Chloride 1,000 ml @ 100 mls/hr Q10H IV 03/13/24 18:30 03/15/24 02:33 100 MLS/HR Lorazepam 0.5 mg Q6HP PRN PO 03/13/24 18:30 03/15/24 18:12 0.5 MG Al Hydrox/Mg Hydrox/Simethicone 30 ml Q6HP PRN PO 03/13/24 18:30 Docusate Sodium 100 mg BIDPRN PRN PO 03/13/24 18:30 Acetaminophen 650 mg Q6HP PRN PO 03/13/24 18:30 Temazepam 15 mg QHSP PRN PO 03/13/24 18:30 03/13/24 23:32 15 MG Acetaminophen/ Hydrocodone Bitart 1 tab Q4HP PRN PO 03/13/24 18:30 Ondansetron HCl 4 mg Q4HP PRN IV 03/13/24 18:30 03/13/24 20:23 4 MG Morphine Sulfate 2 mg Q4HPRN PRN IV 03/13/24 18:30 03/13/24 20:22 2 MG Hydroxyzine HCl 20 mg QHSP PRN PO 03/13/24 18:30 03/13/24 21:00 20 MG Naloxone HCl 0.2 mg QID PRN IV 03/13/24 19:00 Diphenhydramine HCl 25 mg Q4HP PRN IV 03/13/24 23:15 03/15/24 02:31 25 MG Quetiapine Fumarate 25 mg HS PO 03/14/24 22:00 03/15/24 21:42 25 MG Haloperidol Lactate 5 mg Q6HP PRN IM 03/14/24 17:15 03/15/24 16:10 5 MG Clonidine HCl 0.1 mg BID PO 03/15/24 22:00 03/16/24 09:32 0.1 MG Medication adjusted: No Labs ordered: No Psychotherapy provided: Yes Diagnosis: [place] I : F11.20, F15.20 [place] II : [place] III : [place] IV : [place] V : Plan : Based on psychiatric interview the pt seems to be a low risk for harm to self. Pt's endorsement of inappropriate use of prescription psychiatric medicine seems accurate. The pt is future oriented, lives with , in rehab with , wants to continue working on getting sober and will have a conversation with his psychiatric provider about what happened with the meds. The pt doesn't know which meds and what dose caused him to feel sick and come to the hospital because his is in charge of doling out the meds. Given the +ve tox screens it is very possible that the pt had a relapse. The pt is denying it and becomes irritated at the perceived insinuation but there is a possibility that the pt may not be entirely truthful about this. History of Present Illness Reason for Consult : Rule in/out suicide attempt. HPI : 48 y/o WM self referred to the hospital for feeling sick and appearing to be in opioid withdrawals. The pt has been treated and is now ready for discharge but the attending physician wanted psychiatry to weigh in on the possibilty of this having been a suicide attempt. The pt is somewhat cooperative with the interview, a little annoyed that his discharge is getting delayed, but reasonable and redirectable and able to control his frustration in the service of this evaluation. He even goes so far as to be jovial (appropriately) once he feels comfortable. The pt is in rehab with his at an [facility] and attending [facility]. Pt was recently started on some meds that he cannot remember the names of and he seems to have taken them incorrectly. He vehemently denies a suicide attempt. He also denies using substances to cause the presentation that he had when he came to the hospital. When asked if was started on suboxone, he says he is not sure of the dose but does recall having a discussion about starting it at the PHP. He says that his is in charge of doling out the meds so he doesn't keep track of them. Pt denies past suicide attempt, current SI, HI or AVH. Past Psychiatric History : Multiple instances of rehab and [facility] treatments over the last many years. Recently current in 2019 and now they are both in rehab together. Denies past psych hospitalizations. Past Medical History : Denies. Social History : At [facility]. Unemployed. From [place] for treatment of [facility]. . Assessment/Diagnosis/Plan Reviewed: Care Plan, Labs, Medications LANDON MCINTOSH MD Mar 16, 2024 15:27
== END 2024-03-16 16:26 | disposition home or self-care (01) | DRG 917 ==
LOC: ER 12:09 → EDBD 12:09 → OVERFLOW 18:32 → WEST WING 23:46 → CENTRAL 03-14 14:35
PROVIDERS: ADMIT Hospitalist; ATTEND Internal Medicine
DX: T50.901A Poisoning by unspecified drugs, medicaments and biological substances, accidental (unintentional), initial encounter (principal); G93.41 Metabolic encephalopathy; I50.9 Heart failure, unspecified; Y92.89 Other specified places as the place of occurrence of the external cause
CPT/HCPCS: 87081; 96374; 96375; 99291; G0378